=== PATIENT | female | born 1985 | race Caucasian/White ===

== ENCOUNTER 2022-08-02 10:25 | Emergency (ER) | payer OTHER ==
[2022-08-02 10:46] VITALS: BP 137/90; PULSE 93; RESP 20; TEMP 99; BMI 32.5
== END 2022-08-02 11:56 | disposition home or self-care (01) ==
LOC: FER 10:25
PROC: 0XQK0ZZ Repair Left Hand, Open Approach (ICD-10-PCS; principal; 2022-08-02)
DX: S61.213A Laceration without foreign body of left middle finger without damage to nail, initial encounter (principal)
CPT/HCPCS: 99283-25